=== PATIENT | female | born 1985 | race Asian ===

== ENCOUNTER 2018-10-03 12:16 | Emergency (ER) | payer OTHER | END 2018-10-03 14:10 | disposition home or self-care (01) | LOC: EDH 12:16 | DX: S13.8XXA Sprain of joints and ligaments of other parts of neck, initial encounter (principal); V49.49XA Driver injured in collision with other motor vehicles in traffic accident, initial encounter; Y93.89 Activity, other specified; Y92.89 Other specified places as the place of occurrence of the external cause; Y99.8 Other external cause status | CPT/HCPCS: 70450; 72040; 81025 ==